=== PATIENT | male | born 1935 | race African-American/Black ===

== ENCOUNTER → 2017-03-10 | Outpatient (CLI) | payer OTHER ==
[~2017-03-10] MED LIST: AMITIZA8 MCG PO; AMITRIPTYLINE H25 MG PO; AMLODIPINE BESY10 MG PO; BENIFIBER PO; CATAPRES0.1 MG PO; CIALIS5 MG PO; COUMADIN5 MG PO; FISH OIL 1,0001 CAP PO; FLONASE 0.05% N16 G1; HYDROCODON-ACE1 EACH PO; HYZAAR 100-25 T1 TAB PO; HYZAAR1 TAB 100- PO; IBUPROFEN600 MG PO; IRON18 MG PO; LASIX PO; LEVAQUIN750 M1 PO; LEVEMIR SQ; LEVEMIR SUBQ; LOPID600 MG PO; LOSARTAN-HCTZ1 EAC1 PO; MEN'S 50+ DAIL1 EACH PO; METAXALONE800 MG PO; METOPROLOL SUC100 MG PO; NAMENDA XR28 MG PO; NAMENDA5 MG PO; NORVASC10 MG PO; PRAVACHOL PO; PRAVACHOL20 MG PO; PRAVACHOL80 MG PO; PROTONIX PO; TOPROL XL PO; VICODIN PO; VITAMIN D35000 UNIT PO; ZOFRAN ODT4 MG PO; ZYLOPRIM PO; ZYLOPRIM100 MG PO
[2017-03-10 12:09] LABS: BASOPHIL# 0.1 X10e3 (0-0.3); BASOPHIL% 0.9 % (0-2.5); EOSINOPHIL% 0.2 % (0.0-7.0); LYMPHOCYTE# 1.6 X10e3 (1.0-3.5); LYMPHOCYTE% 23.4 % (17.0-45.0); MEAN CELL VOLUME 85.4 FL (83-96); MEAN CORPUSCULAR HEMOGLOBIN 27.8 PG (28-34); MEAN CORPUSCULAR HGB CONC 32.5 g/dL (30-36); MEAN PLATELET VOLUME 9.8 FL (6.5-11.5); MONOCYTE# 1.6 X10e3 (0-1.0); MONOCYTE% 22.7 % (3.0-12.0); NEUTROPHIL# 3.7 X10e3 (1.5-7.1); NEUTROPHIL% 52.8 % (40-75); PLATELET COUNT 311 X10e3 (140-420); RED BLOOD COUNT 4.33 X10e (3.90-5.60); RED CELL DISTRIBUTION WIDTH 18.6 % (11.0-15.5); WHITE BLOOD COUNT 6.9 X10e3 (4.0-10.5)
[2017-03-10 12:15] LABS: DIFF IND YES
[2017-03-10 12:35] LABS: ALBUMIN SERUM 3.5 g/dL (3.5-5.0); BILIRUBIN,TOTAL 0.4 mg/dL (0.2-2.0); BUN/CREATININE RATIO 12.94; CALCIUM SERUM 8.9 mg/dL (8.4-10.2); CREATININE SERUM 1.7 mg/dL (0.6-1.4); GLOM FILT RATE Estimated 42.6 mL/min (>60); POTASSIUM 3.2 mmol/L (3.5-5.1); PROTEIN TOTAL SERUM 7.5 g/dL (6.0-8.3)
[2017-03-10 13:05] LABS: ANISOCYTOSIS MOD; HYPOCHROMIA SL; PLATELET ESTIMATE NORMAL (NORMAL)
[2017-03-10 15:16] LABS: URINE APPEARANCE CLEAR; URINE BILIRUBIN NEG (NEG); URINE BLOOD 2+ (NEG); URINE COLOR DK YELLOW; URINE GLUCOSE NEG (NEG); URINE KETONE TRACE (NEG); URINE LEUKOCYTE ESTERASE NEG (NEG); URINE NITRATE NEG (NEG); URINE PH 5.5 (5-8); URINE PROTEIN 3+ (NEG); URINE SPECIFIC GRAVITY 1.021 (1.003-1.035); URINE UROBILINOGEN 0.2 MG/DL (NEG)
[2017-03-10 15:20] LABS: URINE BACTERIA AUWI NEG (NEGATIVE); URINE SQUAMOUS EPITHELIAL CELL OCC /[HPF]
[2017-03-10 15:44] LABS: URINE SOURCE CLEAN CATCH
== END | disposition home or self-care (01) ==
LOC: CLAB 11:40
PROVIDERS: Internal Medicine Nephrology
DX: N18.3 Chronic kidney disease, stage 3 (moderate) (principal)
CPT/HCPCS: 36415; 80053; 81003; 82306; 82570; 85025